=== PATIENT | female | born 1960 | race African-American/Black ===

== ENCOUNTER 2016-05-14 05:32 | Day surgery (SDC) | payer MEDICARE, MEDICAID ==
[~2016-05-14] VITALS: Ht 165.1 cm; Wt 60.9 kg
[~2016-05-14 05:32] MED LIST: CINA30 PO; CLOP75TA2 PO; EZET10TA PO; FOLIC ACID PO; MVI; RENVELA PO; ZOLP5TAB2 PO
[2016-05-14] MEDS ORDERED: SODIUM CHLORIDE 0.9% 500 ML IV ONE (06:40)
[2016-05-14 06:48] LABS: BASOPHILS % 1.5 % (0.0-2.0); EOSINOPHILS % 11.6 % (0.0-5.0); HEMATOCRIT. 33.2 % (36.0-48.0); HEMOGLOBIN. 11.2 g/dL (12.0-16.0); LYMPHOCYTES % 29.6 % (20.0-50.0); MEAN CORPUSCULAR HEMOGLOBIN 32.5 pg (28.0-32.0); MEAN CORPUSCULAR VOLUME 96.3 fL (81.0-99.0); MEAN PLATELET VOLUME 8.2 fl (7.4-10.4); MONOCYTES % 7.4 % (2.0-8.0); NEUTROPHILS % 49.9 % (40.0-76.0); PLATELET 174 x1000/uL (130-400); RED BLOOD CELL COUNT 3.44 mill/uL (4.2-5.4); RED CELL DISTRIBUTION WIDTH 13.2 % (11.6-14.6)
[2016-05-14 06:57] LABS: INR 1.1; PARTIAL THROMBOPLASTIN TIME 26.4 sec (24.0-34.0); PROTHROMBIN TIME 11.4 sec
[2016-05-14] MEDS ORDERED: GELATIN SPONGE,ABSORBABLE SZ 100 ONE (07:13)
[2016-05-14] MEDS ORDERED: THROMBIN (BOVINE) 5000 UNITS/VIAL TOP ONE (07:13)
[2016-05-14] MEDS ORDERED: HEPARIN SODIUM 1,000 UNIT/1ML VIAL IV ONE (07:14)
[2016-05-14] MEDS ORDERED: PAPAVERINE HCL 30 MG/ML 2ML IV ONE (07:14)
[2016-05-14] MEDS ORDERED: BUPIVACAINE HCL/PF 0.25% (2.5MG/ML) 10ML ONE (07:15)
[2016-05-14] MEDS ORDERED: BUPIVACAINE HCL/PF 0.5% (5MG/ML) 10ML ONE (07:16)
[2016-05-14] MEDS ORDERED: LIDOCAINE HCL 1% 20ML VIAL (Pyxis) INJ ONE ×2 (07:17→07:57)
[2016-05-14] MEDS ORDERED: NORMAL SALINE 0.9% 10 ML SYR ONE (07:34)
[2016-05-14] MEDS ORDERED: BACITRACIN 50,000 UNITS/VIAL ONE (07:34)
[2016-05-14] MEDS ORDERED: MIDAZOLAM HCL 2 MG/2 ML VIAL ONE (07:50)
[2016-05-14] MEDS ORDERED: FENTANYL CITRATE/PF 50MCG/ML 2ML VIAL ONE (07:55)
[2016-05-14] MEDS ORDERED: PROPOFOL 200MG/20ML VIAL IV ONE ×2 (07:57→08:27)
[2016-05-14] MEDS ORDERED: ONDANSETRON HCL 4MG/2ML VIAL ONE (08:27)
[2016-05-14] MEDS ORDERED: HYDROCODONE/ACETAMINOPHEN 5/325MG TABLET PO PRN (08:30)
[2016-05-14] MEDS ORDERED: ONDANSETRON HCL 4MG/2ML VIAL IV PRN (09:00)
[2016-05-14] MEDS ORDERED: MORPHINE SULFATE 2 MG/ML CPJ (NOT FOR IM USE) IV PRN (09:00)
[2016-05-14] MEDS ORDERED: ACETAMINOPHEN 325MG TABLET PO ONE (10:00)
== END 2016-05-14 10:30 | disposition home or self-care (01) ==
LOC: OR 05:32
PROVIDERS: ATTEND Surgery Vascular Surgery
DX: T82.520A Displacement of surgically created arteriovenous fistula, initial encounter (principal); N18.6 End stage renal disease
CPT/HCPCS: 36415; 37799; 80048; 85025; 85610; 85730; 88304; 93005; A4216; J1644; J2250; J2405; J3010; J3490; J7040; J2440; J2704

== ENCOUNTER → 2016-08-08 | Outpatient (CLI) | payer MEDICARE, MEDICAID ==
[~2016-08-08] MED LIST changes: -MVI
== END | disposition home or self-care (01) ==
LOC: MAMMO 09:03
PROVIDERS: ATTEND Obstetrics & Gynecology Obstetrics
DX: R92.8 Other abnormal and inconclusive findings on diagnostic imaging of breast (principal)
CPT/HCPCS: 76642; G0204

== ENCOUNTER → 2016-08-19 | Day surgery (SDC) | payer MEDICARE, MEDICAID ==
[~2016-08-19] MED LIST changes: +LIDOCAINE HCL/EPINEPHRINE 1%-EPI 1:100,000 20 ML VIAL ONE; +SODIUM BICARBONATE 4% (2.4MEQ) 5ML VIAL IV ONE
== END | disposition home or self-care (01) ==
LOC: RAD 08:28
PROVIDERS: ATTEND Obstetrics & Gynecology Obstetrics
DX: N60.81 Other benign mammary dysplasias of right breast (principal); N60.11 Diffuse cystic mastopathy of right breast; N60.12 Diffuse cystic mastopathy of left breast
CPT/HCPCS: 19083; 88305; A4648; J3490

== ENCOUNTER 2016-12-09 08:54 | Emergency (ER) | payer MEDICARE, MEDICAID ==
[~2016-12-09] VITALS: Ht 165.1 cm; Wt 60.0 kg
[~2016-12-09 08:54] MED LIST changes: +CLOP75TA16 PO; -CLOP75TA2 PO; -EZET10TA PO; -LIDOCAINE HCL/EPINEPHRINE 1%-EPI 1:100,000 20 ML VIAL ONE; -SODIUM BICARBONATE 4% (2.4MEQ) 5ML VIAL IV ONE; +ZET10 PO
[2016-12-09] MEDS ORDERED: BACITRACIN ZINC OINT UDPKT TOP ONE (09:30)
[2016-12-09] MEDS ORDERED: LIDOCAINE HCL 1% 20ML VIAL (Pyxis) INJ MC ONE (09:30)
[2016-12-09] MEDS ORDERED: TETANUS, DIPHTHERIA, PERTUSSIS VAC/PF 0.5ML (>7YR OLD) IM ONE (09:30)
[2016-12-09] MEDS ORDERED: ACETAMINOPHEN 325MG TABLET PO ONE (11:15)
[2016-12-09 16:00] VITALS: BP 100/54
== END 2016-12-09 16:11 | disposition home or self-care (01) ==
LOC: ER 09:10
DX: S01.81XA Laceration without foreign body of other part of head, initial encounter (principal); R51 Headache; I12.0 Hypertensive chronic kidney disease with stage 5 chronic kidney disease or end stage renal disease; N18.6 End stage renal disease; M48.02 Spinal stenosis, cervical region; M50.221 Other cervical disc displacement at C4-C5 level; K57.30 Diverticulosis of large intestine without perforation or abscess without bleeding; Z23 Encounter for immunization; Z88.0 Allergy status to penicillin; Z99.2 Dependence on renal dialysis; Z88.6 Allergy status to analgesic agent; Z88.5 Allergy status to narcotic agent; Z79.899 Other long term (current) drug therapy
CPT/HCPCS: 12031; 70450; 72125; 72192; 73502; 73552; 90471; 90715; 99284; J3490

== ENCOUNTER 2016-12-17 11:16 | Emergency (ER) | payer MEDICARE, MEDICAID ==
[~2016-12-17] VITALS: Ht 165.1 cm; Wt 61.0 kg
[2016-12-17 15:20] VITALS: BP 115/70
== END 2016-12-17 15:20 | disposition home or self-care (01) ==
LOC: ER 12:23
DX: Z48.02 Encounter for removal of sutures (principal); Z88.0 Allergy status to penicillin; Z88.3 Allergy status to other anti-infective agents; Z88.6 Allergy status to analgesic agent
CPT/HCPCS: 99281

== ENCOUNTER 2017-11-27 10:56 | Day surgery (SDC) | payer MEDICARE, MEDICAID ==
[~2017-11-27] VITALS: Ht 167.6 cm; Wt 60.0 kg
[2017-11-27] MEDS ORDERED: HEPARIN SODIUM 1,000 UNIT/1ML VIAL IV ONE (11:09)
[2017-11-27] MEDS ORDERED: THROMBIN (BOVINE) 5000 UNITS/VIAL TOP ONE (11:09)
[2017-11-27] MEDS ORDERED: NORMAL SALINE 0.9% 10 ML SYR ONE (11:09)
[2017-11-27] MEDS ORDERED: BUPIVACAINE HCL/PF 0.5% (5MG/ML) 10ML ONE (11:09)
[2017-11-27] MEDS ORDERED: LIDOCAINE HCL 1% 10 MG/ML 10ML VIAL ONE (11:09)
[2017-11-27] MEDS ORDERED: BACITRACIN 50,000 UNITS/VIAL ONE (11:10)
[2017-11-27] MEDS ORDERED: SODIUM CHLORIDE 0.9% 1,000 ML ONE (11:10)
[2017-11-27] MEDS ORDERED: GELATIN SPONGE,COMPRESSED SZ 100 ONE (11:10)
[2017-11-27] MEDS ORDERED: SODIUM CHLORIDE 0.9% 500 ML IV ONE (11:45)
[2017-11-27 12:19] LABS: BASOPHILS % 1.1 % (0.0-2.0); EOSINOPHILS % 6.8 % (0.0-5.0); HEMATOCRIT. 38.1 % (36.0-48.0); HEMOGLOBIN. 12.6 g/dL (12.0-16.0); LYMPHOCYTES % 34.1 % (20.0-50.0); MEAN CORPUSCULAR HEMOGLOBIN 31.6 pg (28.0-32.0); MEAN CORPUSCULAR VOLUME 95.9 fL (81.0-99.0); MEAN PLATELET VOLUME 8.6 fl (7.4-10.4); MONOCYTES % 8.3 % (2.0-8.0); NEUTROPHILS % 49.7 % (40.0-76.0); PLATELET 158 x1000/uL (130-400); RED BLOOD CELL COUNT 3.97 mill/uL (4.2-5.4); RED CELL DISTRIBUTION WIDTH 15.5 % (11.6-14.6)
[2017-11-27 12:28] LABS: INR 1.1; PARTIAL THROMBOPLASTIN TIME 27.9 sec (23.4-31.0); PROTHROMBIN TIME 10.6 sec (9.1-11.1)
[2017-11-27] MEDS ORDERED: FENTANYL CITRATE/PF 50MCG/ML 2ML VIAL ONE (12:49)
[2017-11-27] MEDS ORDERED: MIDAZOLAM HCL 2 MG/2 ML VIAL ONE (12:49)
[2017-11-27] MEDS ORDERED: BACITRACIN ZINC 15GM TUBE TOP ONE (12:52)
[2017-11-27] MEDS ORDERED: PROPOFOL 200MG/20ML VIAL IV ONE (12:54)
[2017-11-27] MEDS ORDERED: HYDROMORPHONE HCL/PF 2MG/ML CPJ IV PRN (13:15)
[2017-11-27] MEDS ORDERED: LABETALOL 5MG/ML SYR 20 MG/4 ML SYRINGE IV PRN (13:15)
[2017-11-27] MEDS ORDERED: MEPERIDINE HCL/PF 25MG/ML CPJ IV PRN (13:15)
[2017-11-27] MEDS ORDERED: ONDANSETRON HCL 4MG/2ML INJ IV PRN (13:15)
[2017-11-27] MEDS ORDERED: EPHEDRINE SULFATE 50MG/ML VIAL IM PRN (13:30)
[2017-11-27] MEDS ORDERED: EPHEDRINE SULFATE 50MG/ML VIAL IV PRN (13:30)
[2017-11-27] MEDS ORDERED: CALC667T2 PO (14:00)
[2017-11-27] MEDS ORDERED: LEVO100T9 PO (14:00)
[2017-11-27] MEDS ORDERED: FERR210T PO (14:03)
[2017-11-27] MEDS ORDERED: ACET-2708 PO (14:05)
== END 2017-11-27 14:30 | disposition home or self-care (01) ==
LOC: OR 10:56
PROVIDERS: ATTEND Surgery Vascular Surgery
DX: T82.590A Other mechanical complication of surgically created arteriovenous fistula, initial encounter (principal); L98.9 Disorder of the skin and subcutaneous tissue, unspecified; I12.0 Hypertensive chronic kidney disease with stage 5 chronic kidney disease or end stage renal disease; N18.6 End stage renal disease; M50.221 Other cervical disc displacement at C4-C5 level; M48.02 Spinal stenosis, cervical region; Z79.899 Other long term (current) drug therapy; Z88.6 Allergy status to analgesic agent; Z88.3 Allergy status to other anti-infective agents; Z88.0 Allergy status to penicillin; Z88.5 Allergy status to narcotic agent; Y83.8 Other surgical procedures as the cause of abnormal reaction of the patient, or of later complication, without mention of misadventure at the time of the procedure
CPT/HCPCS: 35903; 36415; 80048; 85025; 85610; 85730; 88304; 93005; A4216; J1644; J2250; J3010; J3490; J7030; J7040; J2704

== ENCOUNTER 2019-02-18 15:47 | Emergency (ER) | payer MEDICARE, MEDICAID ==
[~2019-02-18] VITALS: Ht 167.6 cm; Wt 60.5 kg
[~2019-02-18 15:47] MED LIST changes: +ACET-2708 PO; +CALC667T2 PO; -CLOP75TA16 PO; +CLOP75TA4 PO; +EZET10TA13 PO; +FERR210T PO; +LEVO100T9 PO; -ZET10 PO
[2019-02-18] MEDS ORDERED: SODIUM CHLORIDE 0.9% 1,000 ML IV ONE (16:45)
[2019-02-18 17:40] LABS: BASOPHILS % 1.3 % (0.0-2.0); EOSINOPHILS % 4.8 % (0.0-5.0); HEMATOCRIT. 35.4 % (36.0-48.0); HEMOGLOBIN. 11.8 g/dL (12.0-16.0); LYMPHOCYTES % 35.5 % (20.0-50.0); MEAN CORPUSCULAR HEMOGLOBIN 32.2 pg (28.0-32.0); MEAN CORPUSCULAR VOLUME 96.4 fL (81.0-99.0); MONOCYTES % 7.7 % (2.0-8.0); NEUTROPHILS % 50.7 % (40.0-76.0); PLATELET 168 x1000/uL (130-400); RED BLOOD CELL COUNT 3.67 mill/uL (4.2-5.4); RED CELL DISTRIBUTION WIDTH 15.2 % (11.6-14.6)
[2019-02-18] MEDS ORDERED: ACETAMINOPHEN 325MG TABLET PO ONE (18:45)
[2019-02-18] MEDS ORDERED: MORPHINE SULFATE 2 MG/ML CPJ (NOT FOR IM USE) IV ONE (19:30)
[2019-02-18] MEDS ORDERED: CLINDAMYCIN 300 MG in DEXTROSE 5% WATER 50 ML IV ONE (19:45)
[2019-02-18 21:13] VITALS: BP 90/62
== END 2019-02-18 21:13 | disposition home or self-care (01) ==
LOC: ER 15:47
DX: L03.012 Cellulitis of left finger (principal)
CPT/HCPCS: 36415; 73130; 80048; 85025; 85651; 86140; 93922; 96365; 96375; 99284; J2270; J3490; J7030; J7060

== ENCOUNTER 2019-02-22 14:40 | Emergency (ER) | payer MEDICARE, MEDICAID ==
[~2019-02-22] VITALS: Ht 165.1 cm; Wt 65.0 kg
[2019-02-22] MEDS ORDERED: HYDROCODONE/ACETAMINOPHEN 5/325MG TABLET PO STA (15:44)
[2019-02-22] MEDS ORDERED: LEVOFLOXACIN 750MG PREMIX 150 ML IV ONE (15:45)
[2019-02-22 17:13] LABS: EOSINOPHILS % 4.9 % (0.0-5.0); HEMOGLOBIN. 11.9 g/dL (12.0-16.0); MEAN CORPUSCULAR HEMOGLOBIN 32.3 pg (28.0-32.0); MEAN CORPUSCULAR VOLUME 97.3 fL (81.0-99.0); MEAN PLATELET VOLUME 8.8 fl (7.4-10.4); MONOCYTES % 7.2 % (2.0-8.0); NEUTROPHILS % 61.9 % (40.0-76.0); PLATELET 187 x1000/uL (130-400); RED BLOOD CELL COUNT 3.69 mill/uL (4.2-5.4); RED CELL DISTRIBUTION WIDTH 15.7 % (11.6-14.6)
[2019-02-22 17:19] LABS: CHLORIDE 95 mEq/L (98-107)
[2019-02-22] MEDS ORDERED: ACETAMINOPHEN 325MG TABLET PO ONE (17:30)
[2019-02-22] MEDS ORDERED: SODIUM CHLORIDE 0.9% 250 ML IV ONE (18:15)
[2019-02-22 22:51] VITALS: BP 85/51
== END 2019-02-23 01:54 | disposition short-term general hospital (02) ==
LOC: ER 14:40
DX: S63.682A Other sprain of left thumb, initial encounter (principal); X58.XXXA Exposure to other specified factors, initial encounter; Y93.89 Activity, other specified; Y92.89 Other specified places as the place of occurrence of the external cause; Y99.8 Other external cause status; N18.6 End stage renal disease; Z99.2 Dependence on renal dialysis; Z79.899 Other long term (current) drug therapy; Z88.6 Allergy status to analgesic agent; Z88.0 Allergy status to penicillin; Z88.5 Allergy status to narcotic agent
CPT/HCPCS: 36415; 80053; 85025; 87040; 96365; 99285; J1956; J7050

== ENCOUNTER 2019-08-25 15:06 | Emergency (ER) | payer MEDICARE, MEDICAID ==
[~2019-08-25] VITALS: Ht 162.6 cm; Wt 65.0 kg
[2019-08-25 15:20] VITALS: BP 68/41
[2019-08-25] MEDS ORDERED: LIDOCAINE HCL/PF 1% 10 MG/ML 5ML VIAL IJ ONE (17:00)
== END 2019-08-25 18:02 | disposition home or self-care (01) ==
LOC: ER 15:06
DX: S01.01XA Laceration without foreign body of scalp, initial encounter (principal); N18.6 End stage renal disease; Z99.2 Dependence on renal dialysis; E89.0 Postprocedural hypothyroidism; Z88.6 Allergy status to analgesic agent; Z88.5 Allergy status to narcotic agent; Z88.0 Allergy status to penicillin; W01.0XXA Fall on same level from slipping, tripping and stumbling without subsequent striking against object, initial encounter; Y93.89 Activity, other specified; Y92.018 Other place in single-family (private) house as the place of occurrence of the external cause
CPT/HCPCS: 12002; 70450; 99284; J3490

== ENCOUNTER 2019-09-04 09:43 | Emergency (ER) | payer MEDICARE, MEDICAID ==
[~2019-09-04] VITALS: Ht 162.6 cm; Wt 75.0 kg
[2019-09-04 10:00] VITALS: BP 90/54
== END 2019-09-04 10:51 | disposition home or self-care (01) ==
LOC: ER 09:43
DX: Z48.02 Encounter for removal of sutures (principal)
CPT/HCPCS: 99281

== ENCOUNTER 2019-11-06 10:25 | Inpatient (IN) | payer MEDICARE, MEDICAID ==
[~2019-11-06] VITALS: Ht 160 cm; Wt 59.0 kg
[2019-11-06 11:54] LABS: BASOPHILS % 0.8 % (0.0-2.0); EOSINOPHILS % 8.1 % (0.0-5.0); HEMATOCRIT. 34.1 % (36.0-48.0); HEMOGLOBIN. 11.2 g/dL (12.0-16.0); MEAN CORPUSCULAR HEMOGLOBIN 32.5 pg (28.0-32.0); MEAN CORPUSCULAR VOLUME 98.9 fL (81.0-99.0); MEAN PLATELET VOLUME 8.9 fl (7.4-10.4); MONOCYTES % 5.9 % (2.0-8.0); NEUTROPHILS % 69.2 % (40.0-76.0); PLATELET 206 x1000/uL (130-400); RED BLOOD CELL COUNT 3.45 mill/uL (4.2-5.4); RED CELL DISTRIBUTION WIDTH 14.4 % (11.6-14.6)
[2019-11-06 11:57] LABS: INR 1.1; PARTIAL THROMBOPLASTIN TIME 24.8 sec (23.4-31.0); PROTHROMBIN TIME 11.1 sec (9.6-11.0)
[2019-11-06 16:00] VITALS: BP 87/45
[2019-11-06] MEDS ORDERED: ONDANSETRON HCL 4MG/2ML INJ IV PRN (16:15)
[2019-11-06] MEDS ORDERED: LORAZEPAM 0.5MG TABLET PO PRN (16:15)
[2019-11-06] MEDS ORDERED: CLONIDINE 0.1MG TABLET PO PRN (16:15)
[2019-11-06] MEDS ORDERED: HYDROCODONE/ACETAMINOPHEN 5/325MG TABLET PO PRN (16:15)
[2019-11-06] MEDS ORDERED: ACETAMINOPHEN 325MG TABLET PO PRN ×2 (16:15)
[2019-11-06] MEDS ORDERED: IPRATROPIUM/ALBUTEROL 0.5-3(2.5)MG/3ML NEB HHN PRN (16:15)
[2019-11-06] MEDS ORDERED: DOCUSATE SODIUM 100MG CAPSULE PO PRN (16:15)
[2019-11-06 16:44] VITALS: BP 90/45
[2019-11-06] MEDS ORDERED: ZOLPIDEM TARTRATE 5MG TABLET PO SCH (17:00)
[2019-11-06 17:04] VITALS: BP 90/46
[2019-11-07] MEDS ORDERED: LEVOTHYROXINE SODIUM 100MCG TABLET PO SCH (06:45)
[2019-11-07] MEDS ORDERED: CINACALCET HCL 30MG TABLET PO SCH (09:00)
[2019-11-07] MEDS ORDERED: CLOPIDOGREL 75MG TABLET PO SCH (09:00)
== END 2019-11-06 17:40 | disposition home or self-care (01) | DRG 299 ==
LOC: ER 10:39 → EDBEDREQ 11:15 → 5WST 12:56 → EDBEDREQ 13:06 → ENRESERV 14:35
PROVIDERS: ADMIT Internal Medicine; ATTEND Internal Medicine
DX: I82.622 Acute embolism and thrombosis of deep veins of left upper extremity (principal); N18.6 End stage renal disease; I12.0 Hypertensive chronic kidney disease with stage 5 chronic kidney disease or end stage renal disease; D64.9 Anemia, unspecified; Z99.2 Dependence on renal dialysis; Z88.6 Allergy status to analgesic agent; Z88.0 Allergy status to penicillin; Z88.5 Allergy status to narcotic agent; Z88.1 Allergy status to other antibiotic agents; Z79.1 Long term (current) use of non-steroidal anti-inflammatories (NSAID); Z79.899 Other long term (current) drug therapy; I82.612 Acute embolism and thrombosis of superficial veins of left upper extremity
CPT/HCPCS: 36415; 80048; 84484; 85025; 93005; 93971; 99285